=== PATIENT | female | born 1940 | race Asian ===

== ENCOUNTER 2022-01-19 05:58 | Day surgery (SDC) | payer OTHER ==
[~2022-01-19] VITALS: Ht 157.5 cm; Wt 52.7 kg
[~2022-01-19 05:58] MED LIST: SODIUM CHLORIDE 0.9% 1,000 ML IV ONE; SODIUM CHLORIDE 0.9% 1,000 ML ONE
[2022-01-19] MEDS ORDERED: LIDOCAINE 2% 11 ML JELLY TP ONE (05:59)
[2022-01-19] MEDS ORDERED: BENZOCAINE 20% 50 MCG/SPRAY 57 GM TP ONE (05:59)
[2022-01-19] MEDS ORDERED: LIDOCAINE 4% 50 ML SOLUTION TP ONE (05:59)
[2022-01-19 06:25] LABS: COVID AG,FIA SOURCE NASOPHARYNGEAL
[2022-01-19] MEDS ORDERED: SODIUM CHLORIDE 0.9% 1,000 ML ONE (06:55)
[2022-01-19] MEDS ORDERED: MIDAZOLAM HCL 2 MG/2 ML VIAL ONE (08:07)
[2022-01-19] MEDS ORDERED: FentaNYL CITRATE PF 100 MCG/2 ML VIAL ONE (08:08)
[2022-01-19] MEDS ORDERED: MethylPREDNISolone SOD SUCC 125 MG/2 ML VIAL ONE (09:04)
[2022-01-19] MEDS ORDERED: MethylPREDNISolone SOD SUCC 125 MG/2 ML VIAL IVP ONE (09:15)
[2022-01-19] MEDS ORDERED: OXYGEN THERAPY IH SCH (20:00)
== END 2022-01-19 10:50 | disposition home or self-care (01) ==
LOC: SURGERY 05:58
PROVIDERS: ATTEND Internal Medicine Critical Care Medicine
DX: J38.4 Edema of larynx (principal); B37.0 Candidal stomatitis; I10 Essential (primary) hypertension; Z98.49 Cataract extraction status, unspecified eye; Z98.51 Tubal ligation status; Z98.890 Other specified postprocedural states; Z79.899 Other long term (current) drug therapy
CPT/HCPCS: 31623; 87101; 87220; 87070; 31624; 71045; 87015; 87426; 87206; J3010; J2250; J2930; Q9967; J7030; C9803; Z7610

== ENCOUNTER 2023-12-13 06:42 | Day surgery (SDC) | payer OTHER ==
[~2023-12-13] VITALS: Ht 157.5 cm; Wt 52.7 kg
[~2023-12-13 06:42] MED LIST changes: +SODIUM CHLORIDE 0.9% 0 ML ONE; -SODIUM CHLORIDE 0.9% 1,000 ML IV ONE; -SODIUM CHLORIDE 0.9% 1,000 ML ONE
[2023-12-13] MEDS ORDERED: MONT-35 PO (07:51)
[2023-12-13] MEDS ORDERED: MIRT-89 PO (07:51)
[2023-12-13] MEDS ORDERED: AMLO-257 PO (07:51)
[2023-12-13] MEDS ORDERED: FAMO20 PO (07:51)
[2023-12-13] MEDS ORDERED: PYRI-9 PO (07:51)
[2023-12-13] MEDS ORDERED: ATEN-73 PO (07:51)
[2023-12-13] MEDS ORDERED: LOSA-382 PO (07:51)
[2023-12-13] MEDS ORDERED: LEVO100 PO (07:51)
[2023-12-13] MEDS ORDERED: BENZ-227 PO (07:51)
[2023-12-13] MEDS ORDERED: FentaNYL CITRATE PF 100 MCG/2 ML VIAL ONE (08:22)
[2023-12-13] MEDS ORDERED: MIDAZOLAM HCL 2 MG/2 ML VIAL ONE (08:22)
[2023-12-13] MEDS ORDERED: SODIUM CHLORIDE 0.9% 1,000 ML ONE (08:51)
[2023-12-13] MEDS: SODIUM CHLORIDE 0.9% 1,000 ML IV ONE (08:55)
[2023-12-13 09:00] VITALS: PULSE 82; RESP 18; O2SAT 94
[2023-12-13] MEDS: MethylPREDNISolone SOD SUCC 125 MG/2 ML VIAL IVP ONE (09:47)
[2023-12-13] MEDS ORDERED: ALBUTEROL SULFATE 2.5 MG/0.5 ML NEB SOLUTION NEB ONE (12:00)
[2023-12-13] MEDS ORDERED: LIDOCAINE 4% 50 ML SOLUTION ONE (12:00)
[2023-12-13] MEDS ORDERED: BENZOCAINE 20% 50 MCG/SPRAY 57 GM ONE (12:00)
[2023-12-13] MEDS ORDERED: LIDOCAINE 2% 11 ML JELLY ONE (12:00)
== END 2023-12-13 12:20 | disposition home or self-care (01) ==
LOC: SURGERY 06:42
PROVIDERS: ATTEND Internal Medicine Critical Care Medicine
DX: R05.3 Chronic cough (principal); J38.4 Edema of larynx; B37.0 Candidal stomatitis; R04.2 Hemoptysis; J98.09 Other diseases of bronchus, not elsewhere classified; J84.10 Pulmonary fibrosis, unspecified; J98.8 Other specified respiratory disorders; I70.0 Atherosclerosis of aorta; J98.11 Atelectasis; M19.90 Unspecified osteoarthritis, unspecified site; E89.0 Postprocedural hypothyroidism; Z85.21 Personal history of malignant neoplasm of larynx; Z79.890 Hormone replacement therapy; Z79.899 Other long term (current) drug therapy; Z98.51 Tubal ligation status; Z98.890 Other specified postprocedural states
CPT/HCPCS: 87206; 87101; 87220; 87070; 88108; 31623; 31624; 71045; 87015; J3010; J2250; J7030; J7613; Z7610